=== PATIENT | male | born 1985 | race Caucasian/White ===

== ENCOUNTER 2024-08-07 06:01 | Outpatient (RCR) | payer OTHER, SELFPAY | END 2024-08-07 10:35 | disposition home or self-care (01) | LOC: RPT 06:01 | PROVIDERS: ATTENDING PHYSICIAN Student in an Organized Health Care Education/Training Program; FAMILY PHYSICIAN General Practice | DX: M25.561 Pain in right knee (principal); Z73.6 Limitation of activities due to disability | CPT/HCPCS: 97110; 97161 ==